=== PATIENT | female | born 1995 | race Caucasian/White ===

== ENCOUNTER 2017-01-05 03:13 | Emergency (ER) | payer OTHER ==
[~2017-01-05] VITALS: Ht 165.1 cm; Wt 68.2 kg
[2017-01-05] MEDS ORDERED: birth control PO (03:19)
[2017-01-05 03:20] VITALS: BP 110/65; TEMP 97.8
[2017-01-05] MEDS ORDERED: ULTRAM 50MG TAB50 MG PO (04:01)
[2017-01-05] MEDS ORDERED: ZOFRAN8 MG PO (04:01)
[2017-01-05 04:17] VITALS: PULSE 77
== END 2017-01-05 04:18 | disposition home or self-care (01) ==
LOC: COL.ER 03:13
DX: R19.7 Diarrhea, unspecified (principal); R10.33 Periumbilical pain